=== PATIENT | male | born 2000 | race Native Hawaiian/Other Pacific Islander ===

== ENCOUNTER 2018-10-27 03:59 | Emergency (ER) | payer OTHER ==
[~2018-10-27] VITALS: Ht 182.9 cm; Wt 111.1 kg
[2018-10-27 05:21] LABS: PLATELET COUNT 315 K/uL (142-355)
[2018-10-27 07:23] VITALS: BP 152/90; TEMP 98.1
== END 2018-10-27 07:23 | disposition home or self-care (01) ==
LOC: ED 03:59
PROVIDERS: Family Medicine
DX: R60.9 Edema, unspecified (principal); S93.401A Sprain of unspecified ligament of right ankle, initial encounter
CPT/HCPCS: 36415; 80053; 84550; 85027; 96372; 99283; J1885

== ENCOUNTER 2022-06-23 06:00 | Emergency (ER) | payer OTHER ==
[~2022-06-23] VITALS: Ht 182.9 cm; Wt 113.4 kg
[2022-06-23 06:30] VITALS: TEMP 98.3
[2022-06-23 07:43] VITALS: BP 128/64
== END 2022-06-23 07:45 | disposition home or self-care (01) ==
LOC: ED 06:00
DX: M54.50 Low back pain, unspecified (principal); M25.562 Pain in left knee; G89.29 Other chronic pain
CPT/HCPCS: 96372; 99283; J1885

== ENCOUNTER 2022-08-17 08:10 | Emergency (ER) | payer OTHER ==
[~2022-08-17] VITALS: Ht 182.9 cm; Wt 117.9 kg
[2022-08-17 09:55] VITALS: BP 140/77; TEMP 98.5
== END 2022-08-17 09:55 | disposition home or self-care (01) ==
LOC: ED 08:10
DX: M10.9 Gout, unspecified (principal); S93.401A Sprain of unspecified ligament of right ankle, initial encounter
CPT/HCPCS: 84550; 96372; 99283; J1100